=== PATIENT | male | born 1990 | race African-American/Black ===

== ENCOUNTER 2016-04-19 19:05 | Emergency (ER) | payer MEDICAID, OTHER ==
--- NOTE | 2016-04-19 19:39 | ER Document Report ---
ED Medical Screen (RME) - General Stated Complaint: HAND LACERATION Mode of Arrival: Ambulatory Information source: Patient Notes: Patient reports cut his left thumb with a knife while at work today. Patient's tetanus immunizations currently up-to-date. I have greeted and performed a rapid initial assessment of this patient. A comprehensive ED assessment and evaluation of the patient, analysis of test results and completion of the medical decision making process will be conducted by additional ED providers. Physical Exam - Vital signs Vitals: Temp Pulse Resp BP Pulse Ox 97.9 F 64 14 115/61 100 04/19/16 19:09 04/19/16 19:09 04/19/16 19:09 04/19/16 19:09 04/19/16 19:09 - Skin Skin irregularity: Laceration - Laceration to base of left thumb. Course - Vital Signs Vital signs: Temp Pulse Resp BP Pulse Ox 97.9 F 64 14 115/61 100 04/19/16 19:09 04/19/16 19:09 04/19/16 19:09 04/19/16 19:09 04/19/16 19:09
[2016-04-19] MEDS ORDERED: LIDOCAINE 1% INJ-PF (10 MG/ML) 30 ML SDV INJ ONE (20:41)
[2016-04-19] MEDS ORDERED: IBUPROFEN 600 MG TABLET PO ONE (20:42)
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
[2016-04-19 22:35] VITALS: BP 119/78
== END 2016-04-19 22:35 | disposition home or self-care (01) ==
LOC: ER 19:05
PROC: 0HQGXZZ Repair Left Hand Skin, External Approach (ICD-10-PCS; principal; 2016-04-19)
DX: S61.012A Laceration without foreign body of left thumb without damage to nail, initial encounter (principal); W26.0XXA Contact with knife, initial encounter; Y93.89 Activity, other specified; Y92.009 Unspecified place in unspecified non-institutional (private) residence as the place of occurrence of the external cause; F17.210 Nicotine dependence, cigarettes, uncomplicated; Z71.6 Tobacco abuse counseling
CPT/HCPCS: 99282; 12002; J3490

== ENCOUNTER 2018-06-27 08:44 | Emergency (ER) | payer SELFPAY ==
[2018-06-27] MEDS ORDERED: HYDROCODONE/ACETAMINOPHEN 5-325 MG TABLET PO ONE (09:27)
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
--- NOTE | 2018-06-27 10:37 | RADIOLOGY REPORT (SQ) ---
EXAM DESCRIPTION: FOOT LEFT COMPLETE COMPLETED DATE/TIME: 06/27/2018 9:38 am REASON FOR STUDY: twisted foot COMPARISON: None. NUMBER OF VIEWS: Three views left foot. LIMITATIONS: None. FINDINGS: Nondisplaced intra-articular base of 5th metatarsal fracture. Remaining bones are intact. Joints are preserved. No ankle joint effusion. OTHER: No other significant finding. IMPRESSION: Nondisplaced base of 5th metatarsal fracture. TECHNICAL DOCUMENTATION: JOB ID: [id number] Reading location - IP/workstation name: [email or web address]
[2018-06-27 10:56] VITALS: BP 148/99
== END 2018-06-27 10:55 | disposition home or self-care (01) ==
LOC: ER 08:44
DX: S92.355A Nondisplaced fracture of fifth metatarsal bone, left foot, initial encounter for closed fracture (principal); M79.672 Pain in left foot; X50.1XXA Overexertion from prolonged static or awkward postures, initial encounter; Y93.67 Activity, basketball; F17.200 Nicotine dependence, unspecified, uncomplicated
CPT/HCPCS: 99283